=== PATIENT | female | born 1955 | race Caucasian/White ===

== ENCOUNTER 2020-03-05 08:28 | Day surgery (SDC) | payer OTHER ==
--- OUTSIDE RECORDS SUMMARY | 2020-03-05 08:47 | XMS REPORT | Continuity of Care Document ---
:1955 Author Organization [facility] t Address [facility] [place] [address] Care Team Providers Name Role Phone Unavailable Unavailable Unavailable Problems Condition Condition Condition Status Onset Resolution Last Treating Co mments Source Name Details Category Date Date Treatment Clinician Date Stress Stress Problem Active [facility] Marisela kes - [facility] Allergies, Adverse Reactions, Alerts Allergy Allergy Status Severity Reaction(s) Onset Inactive Treating Comm ents Source Name Type Date Date Clinician Vancomyc Adverse Active shortness of [facility] in HCl Reaction breath [facility] Medications Ordered Filled Start Stop Current Ordering Indication Dosage Frequency Signature Comments Components Source Medication Medication Date Date Medication? Clinician (SIG) Name Name Cyclobenzap Cyclobenzap Yes Chhaya [address] [facility] rine HCl rine HCl Aquiles as needed [facility] Cetirizine Cetirizine Yes Chhaya [address] [facility] HCl HCl [place] [facility] Mometasone Mometasone Yes Chhaya [address] [facility] Furoate Furoate [place] in each Marisela kes - nostril [facility] Nitrofurant Nitrofurant Yes Chhaya [address] [facility] oin oin Aquiles food [facility] Sertraline Sertraline Yes Chhaya [address] [facility] HCl HCl Aquiles [facility] Bifidobacte Bifidobacte Yes Chhaya as [facility] rium lactis rium lactis [place]iles directed [facility] Acyclovir Acyclovir Yes Chhaya [address] [facility] Aquiles [facility] Omeprazole Omeprazole Yes Chhaya [address] [facility] [place] 30 minutes [facility] - before [facility] morning l meal [facility] Lisinopril- Lisinopril- Yes Chhaya [address] [facility] Hydrochloro Hydrochloro [place] [facility] - thiazide thiazide [facility] Levothyroxi Levothyroxi Yes Chhaya [address] [facility] ne Sodium ne Sodium [place] in the [facility] - morning on [facility] an empty l stomach [facility] Simvastatin Simvastatin Yes Chhaya [address] [facility] Aquiles in the [facility] - evening [facility] Estradiol Estradiol Yes Chhaya as [facility] [place] directed [facility] Tylenol Tylenol Yes Chhaya take [address] [facility] (#4) with (#4) with [place] tablet [facility] - codeine codeine [facility] Procedures This patient has no known procedures. Encounters Start End Encounter Admission Attending Care Care Encounter Source Date/Time Date/Time Type Type Clinicians Facility Department ID 2019-10-18 2019-10-18 Outpatient Yang Hernandez [id number] [facility] 13:12:00 13:12:00 t Specialty/U Marisela kes - Specialty rology [facility] a /Urology Clinic [facility] ent [facility] 2019-07-19 2019-07-19 Outpatient Yang Hernandez [id number] [facility] 11:00:00 11:00:00 t Specialty/U Marisela kes - Specialty rology [facility] a /Urology Clinic [facility] Results This patient has no known results.
[2020-03-05] MEDS ORDERED: CEFAZOLIN/SWI 1gm 1 GM/10 ML SYR ONE (09:13)
[2020-03-05] MEDS ORDERED: NA CHLORIDE 0.9% 1,000 ML ONE (09:13)
[2020-03-05] MEDS ORDERED: BUPIVACA 0.25%/EPI 0.0005%/PF 30 ML VIAL ONE (09:50)
[2020-03-05] MEDS ORDERED: FENTANYL CITR 100 MCG/2 ML ONE (10:05)
[2020-03-05] MEDS ORDERED: propofoL 200 MG/20 ML VIAL IV ONE (10:05)
[2020-03-05] MEDS ORDERED: MIDAZOLAM HCL 2 MG/2 ML INJ ONE (10:05)
[2020-03-05] MEDS ORDERED: LIDOCAINE 2% MPF 5 ML VIAL ONE (10:06)
[2020-03-05] MEDS ORDERED: ONDANSETRON 4 MG/2 ML VIAL ONE (10:07)
[2020-03-05] MEDS ORDERED: GLYCOPYRROLATE 0.2 MG/ML SYR ONE (10:26)
[2020-03-05] MEDS ORDERED: KETOROLAC 30 MG/ML INJ ONE (10:26)
[2020-03-05] MEDS ORDERED: NEOSTIGMINE 1 MG/ML -5 ML ONE (10:27)
[2020-03-05] MEDS ORDERED: ROCURONIUM 50 MG/5 ML VIAL IV ONE (10:27)
[2020-03-05] MEDS ORDERED: EPHEDRINE SULF 50 MG/ML VIAL ONE (10:57)
--- NOTE | 2020-03-05 11:20 | P.OP ---
Preoperative diagnosis: Incisional Umbilical Hernia Postoperative diagnosis: Incisional Umbilical Hernia Primary procedure: Open Umbilical Hernia Repair with mesh Anesthesia: GETA + Local Estimated blood loss: <5cc Specimen: Hernia Contents Findings: fibrous thick adhesions Complications: None Implants: Small Bard hernia repair disc with strap Transferred to: Recovery Room Condition: Good
[2020-03-05] MEDS: HYDROMORPHONE HCL 1 MG/ML INJ ONE ×2 (11:50→11:54)
[2020-03-05] MEDS ORDERED: NA CHLORIDE 0.9% 500 ML ONE (11:58)
[2020-03-05 12:26] VITALS: BP 94/56; TEMP 97.4; O2SAT 95
--- NOTE | 2020-03-05 12:30 | OP ---
Date of Procedure: 03/05/2020 Surgeon: Pollo Pantoja MD, Preoperative Diagnosis: Incisional umbilical hernia. Postoperative Diagnosis: Incisional umbilical hernia. Procedure Performed: Open umbilical hernia repair with mesh. Anesthesia: General endotracheal plus local with 0.25% Marcaine. Estimated Blood Loss: Less than 5 cc. Specimen: Hernia contents. Findings: Thick fibrous adhesions from previous periumbilical surgery requiring an adhesiolysis. Complications: None. Implants: Small Bard hernia repair disk with strap. Disposition: The patient was transferred to recovery room in good condition. Procedure In Detail: After informed consent was obtained, the patient was brought to the operating r oom, prepped and draped in the usual sterile fashion. After adequate anesthesia was achieved, I made a curvilinear incision in the infraumbilical position down to subcutaneous tissue using a 15 blade. Electrocautery was used to dissect down circumferentially around a hernia, which was found to be boubacar nating fat tissue at this point. I then circumferentially dissected free and the hernia sac was open ed. The contents of the hernia sac were debrided out as they were thick and fibrous and difficult to dissect without devascularizing them as such they were removed. I then open the hernia sac. I perf ormed a finger sweep to allow for placement of a small Bard PerFix hernia repair disk. I then using 0 interrupted PDS sutures parachuted in the mesh and placed in the preperitoneal space. I then secur ed these circumferentially around and closed the defect of the fascia over the top using interrupted 0 PDS suture in interrupted fashion. The skin was then copiously irrigated and subcutaneous tissues were copiously irrigated and suctioned out until completely dry. The deep dermal layers were then cl osed using a 3-0 Vicryl in an interrupted fashion and skin was closed using 4-0 Monocryl in a running fashion. Dermabond was placed over top. The patient tolerated the procedure well without evidence of complication, transferred to PACU in good condition. All counts correct at the end of the case. TK/MODL Voice ID: [id number] Report ID: [id number]
== END 2020-03-05 13:07 | disposition home or self-care (01) ==
LOC: OR 08:28
PROVIDERS: ATTEND Surgery
PROC: 0WUF0JZ Supplement Abdominal Wall with Synthetic Substitute, Open Approach (ICD-10-PCS; principal; 2020-03-05 10:15)
DX: K42.9 Umbilical hernia without obstruction or gangrene (principal); Z20.828 Contact with and (suspected) exposure to other viral communicable diseases
CPT/HCPCS: 82947 ×2; 88302; 49585; U0002; J2704; J2250; J3010; J1170; J2710; J0690; J7040; J7030; J2405

== ENCOUNTER → 2023-03-11 | Day surgery (SDC) | payer OTHER ==
[2023-03-10 13:09] LABS: Bilirubin Total 0.6 mg/dL (0.2-1.0); Potassium 4.1 mEq/L (3.5-5.1); Protein, Total 7.6 g/dL (6.4-8.2)
--- NOTE | 2023-03-10 16:56 | EKG ---
Test Date: 2023-03-10 Test Time: 12:24:34 High Lift Mule Operator: SILVIA MEASUREMENT RESULTS: Intervals: Rate: 82 NC: 134 QRSD: 72 QT: 374 QTc: 436 [place]: P: 57 NC: 134 QRS: 23 T: 27 INTERPRETIVE STATEMENTS: Normal sinus rhythm Normal ECG Compared to ECG 09/01/2013 13:47:31 No significant changes Electronically Signed On 03-10-23 16:55:37 CDT by Satnam Deleon
[~2023-03-11] MED LIST: LIDOCAINE 1% MPF 5 ML VIAL ONE; NA CHLORIDE 0.9% 1,000 ML ONE; ONDANSETRON 4 MG/2 ML VIAL ONE; propofoL 200 MG/20 ML VIAL IV ONE
--- NOTE | 2023-03-11 11:19 | RAD REPORT ---
EXAM DESCRIPTION: RAD - Chest Pa And Lat (2 Views) - 03/11/2023 10:49 am CLINICAL HISTORY: POSSIBLE ASPIRATION COMPARISON: CHEST SINGLE VIEW dated 08/31/2013; CHEST PA AND LAT 2 VIEW dated 05/07/2005; Abdomen Pe lvis W Contrast dated 04/18/2017 TECHNIQUE: PA and lateral views of the chest were obtained. FINDINGS: The lungs are clear apart from stable left basilar atelectasis. Heart size is normal and c entral vasculature is within normal limits. No pleural effusion or pneumothorax seen. No acute bony f inding noted. IMPRESSION: No acute cardiopulmonary process.
[2023-03-11 14:23] VITALS: TEMP 97
[2023-03-11 14:31] VITALS: BP 133/65; O2SAT 93
== END ==
LOC: OR 07:55
PROVIDERS: ATTEND Surgery
PROC: 0DB78ZX Excision of Stomach, Pylorus, Via Natural or Artificial Opening Endoscopic, Diagnostic (ICD-10-PCS; 2023-03-11)
PROC: 0DB68ZX Excision of Stomach, Via Natural or Artificial Opening Endoscopic, Diagnostic (ICD-10-PCS; 2023-03-11)
PROC: 0DB48ZX Excision of Esophagogastric Junction, Via Natural or Artificial Opening Endoscopic, Diagnostic (ICD-10-PCS; 2023-03-11)
PROC: 0DB98ZX Excision of Duodenum, Via Natural or Artificial Opening Endoscopic, Diagnostic (ICD-10-PCS; principal; 2023-03-11 09:30)
DX: K21.9 Gastro-esophageal reflux disease without esophagitis (principal); R11.2 Nausea with vomiting, unspecified; K44.9 Diaphragmatic hernia without obstruction or gangrene; K22.2 Esophageal obstruction; K29.50 Unspecified chronic gastritis without bleeding
CPT/HCPCS: 93005; 36415; 88312; 82947; 88305; 80053; 71046; 43239; J2704 ×2; J2001; J2405; J7030